=== PATIENT | female | born 1960 | race Caucasian/White ===

== ENCOUNTER 2016-08-25 16:06 | Emergency (ER) | payer OTHER ==
[~2016-08-25] VITALS: Ht 170.2 cm; Wt 136.1 kg
[~2016-08-25 16:06] MED LIST: ALDACTONE25 MG PO; ASPIRIN EC325 MG PO; ATORVASTATIN CA80 MG PO; AZITHROMYCIN250 MG PO; CATAPRES0.1 MG PO; CHLORTHALIDONE25 MG PO; CITALOPRAM HBR10 MG PO; CITALOPRAM HBR20 MG PO; FISH OIL 1,0001 EAC2 NG; HYDROCHLOROTHIA25 MG PO; IRBESARTAN150 MG PO; KEPPRA500 MG PO; LASIX20 MG PO; LEVETIRACETAM500 M1 PO; LIPITOR20 MG PO; LISINOPRIL-HCT1 EAC2 PO; LISINOPRIL20 MG PO; METFORMIN HCL500 M1 PO; METOPROLOL SUC100 MG PO; METOPROLOL TAR100 MG PO; MIDRIN; MULTI VITAMIN1 EACH PO; OCUVITE TABLET1 EAC1 PO; POTASSIUM CHLO10 ME1 PO; TYLENOL EXTRA500 MG PO; VASCEPA1 GM PO; VITAMIN D-32000 UNIT PO; WARFARIN SODIU7.5 MG PO; WARFARIN SODIUM5 MG PO
[2016-11-07] MEDS ORDERED: LEVOTHYROXINE50 MCG PO (07:52)
== END 2016-08-25 17:56 | disposition home or self-care (01) ==
LOC: ED 16:06
DX: S05.11XA Contusion of eyeball and orbital tissues, right eye, initial encounter (principal); I10 Essential (primary) hypertension; Z86.73 Personal history of transient ischemic attack (TIA), and cerebral infarction without residual deficits; Z88.1 Allergy status to other antibiotic agents; Z88.5 Allergy status to narcotic agent; Z79.899 Other long term (current) drug therapy; Z79.01 Long term (current) use of anticoagulants; X58.XXXA Exposure to other specified factors, initial encounter
CPT/HCPCS: 99282

== ENCOUNTER 2017-02-19 17:30 | Emergency (ER) | payer OTHER ==
[~2017-02-19] VITALS: Ht 170.2 cm; Wt 136.1 kg
[~2017-02-19 17:30] MED LIST changes: +LEVOTHYROXINE50 MCG PO
== END 2017-02-19 22:47 | disposition home or self-care (01) ==
LOC: ED 17:30
DX: M25.431 Effusion, right wrist (principal); I10 Essential (primary) hypertension; E03.9 Hypothyroidism, unspecified; E78.00 Pure hypercholesterolemia, unspecified; Z86.711 Personal history of pulmonary embolism; Z88.0 Allergy status to penicillin; Z88.5 Allergy status to narcotic agent; Z79.899 Other long term (current) drug therapy; Z79.82 Long term (current) use of aspirin; Z86.73 Personal history of transient ischemic attack (TIA), and cerebral infarction without residual deficits
CPT/HCPCS: 36415; 73130; 85025; 85610; 99283

== ENCOUNTER 2022-12-28 10:28 | Emergency (ER) | payer MEDICARE, BC ==
[~2022-12-28] VITALS: Ht 170.2 cm; Wt 125.1 kg
[2022-12-28] MEDS ORDERED: JARDIANCE25 MG PO (10:42)
[2022-12-28 11:10] LABS: BASOPHILS 0.7 % (0-2); HEMATOCRIT 49.7 % (35.0-50.0); HEMOGLOBIN 16.5 g/dL (12.0-18.0); LYMPHOCYTES 39.1 % (24-44); MCH 29.7 (27-36); MCHC 33.3 g/dl (30-36); MCV 89.4 fl (81-99); MONOCYTES 8.3 % (0-12); NEUTROPHILS 50.9 % (39-80); PLATELET COUNT 181 K/uL (140-440); RBC 5.55 M/ul (4.3-5.7); RDW 14.3 (10.5-15.0)
[2022-12-28 11:20] LABS: INR 2.34 (0.80-1.30); PROTIME 24.9 Sec (11.2-14.2)
[2022-12-28 11:46] LABS: ALBUMIN 4.1 g/dL (3.4-5.0); ALBUMIN/GLOBULIN RATIO 1.17 (1.1-2.4); ANION GAP 17.6 (7-21); BILIRUBIN, TOTAL 1.8 ng/dL (0.2-1.0); BUN/CREATININE RATIO 13.44 (6.0-28.6); CALCIUM 9.7 mg/dL (8.5-10.1); CREATININE, SERUM 1.19 mg/dL (0.55-1.02); POTASSIUM 3.6 mmol/L (3.5-5.1); PROTEIN, TOTAL 7.6 g/dL (6.4-8.2)
[2022-12-28 12:55] LABS: BILIRUBIN, URINE NEGATIVE (negative); BLOOD/HGB, URINE NEGATIVE (Negative); KETONE, URINE NEGATIVE (Negative); LEUK ESTERASE, URINE NEGATIVE (negative); NITRITE, URINE NEGATIVE (negative); PH, URINE 6.5 (5-7)
[2022-12-28 13:05] LABS: CRYSTALS, URINE NONE SEEN (0-1+); EPITHELIAL CELLS, URINE SQUAMOUS 2+ /lpf (0-1+); RED BLOOD CELLS, URINE 0-1 /hpf (0-5)
[2022-12-28 13:06] LABS: BACTERIA, URINE NONE SEEN /hpf (negative); CASTS, URINE NONE SEEN \\lpf; COLLECTION TYPE, URINE CLEAN CATCH; REFLEX CULTURE, URINE No (No)
[2022-12-28] MEDS ORDERED: ONDANSETRON ODT4 MG PO (13:55)
[2022-12-28 14:10] VITALS: BP 133/77
--- NOTE | 2022-12-30 05:57 | EKG ---
[facility] [address] [facility] [place], [place] [address] Signed Normal sinus rhythm Cannot rule out Anterior infarct , age undetermined Abnormal ECG No previous ECGs available Confirmed by MICKY MALDONADO MD ([id number]) on 12/30/2022 5:56:53 AM Electronically Signed By: MICKY MALDONADO 12/30/22 0556 PATIENT NAME: TAVARES BURKS Electrocardiogram DATE OF : 62 PHYSICIAN: MICKY MALDONADO REPORT #: [id number] REPORT IS CONFIDENTIAL AND NOT TO BE RELEASED WITHOUT AUTHORIZATION
== END 2022-12-28 14:10 | disposition home or self-care (01) ==
LOC: ED 10:28
PROVIDERS: Emergency Medicine
DX: R07.89 Other chest pain (principal); R51.9 Headache, unspecified; R11.2 Nausea with vomiting, unspecified; I10 Essential (primary) hypertension; E03.9 Hypothyroidism, unspecified; E78.00 Pure hypercholesterolemia, unspecified; G43.909 Migraine, unspecified, not intractable, without status migrainosus; Z88.0 Allergy status to penicillin; Z88.5 Allergy status to narcotic agent; Z79.899 Other long term (current) drug therapy; Z79.01 Long term (current) use of anticoagulants
CPT/HCPCS: 36415; 70450; 71045; 80053; 81001; 84484; 85025; 85610; 93005; 93010; 96374; 99285-25; A9270; J2405